=== PATIENT | female | born 1955 | race Two or more races ===

== ENCOUNTER 2024-03-06 10:15 | Emergency (ER) | payer OTHER ==
[~2024-03-06] VITALS: Ht 160 cm; Wt 82.7 kg
[2024-03-06 13:15] VITALS: BP 135/69; PULSE 64; RESP 18; TEMP 97.6; O2SAT 98
[2024-03-06] MEDS ORDERED: LIDO5DIS21 TOP (13:21)
== END 2024-03-06 13:29 | disposition home or self-care (01) ==
LOC: ER 10:15
DX: R07.81 Pleurodynia (principal); M54.2 Cervicalgia; M54.50 Low back pain, unspecified; M25.562 Pain in left knee; M25.561 Pain in right knee; Z88.0 Allergy status to penicillin; Z88.2 Allergy status to sulfonamides; Z91.040 Latex allergy status; V89.2XXA Person injured in unspecified motor-vehicle accident, traffic, initial encounter; Y93.89 Activity, other specified; Y92.89 Other specified places as the place of occurrence of the external cause; Y99.8 Other external cause status
CPT/HCPCS: 71101